=== PATIENT | male | born 1975 | race Hispanic/Latino ===

== ENCOUNTER 2019-03-11 07:19 | Day surgery (SDC) | payer BC ==
[2019-03-10 12:55] VITALS: BP 133/85
[2019-03-10 13:11] LABS: INR 1.07 (0.85-1.15); PARTIAL THROMBOPLASTIN TIME 26.1 SEC (26.3-35.5); PROTHROMBIN TIME 11.2 SEC (9.6-11.6)
[2019-03-10 13:38] LABS: CREATININE 1.2 mg/dL (0.5-1.5); POTASSIUM 3.9 mmol/L (3.5-5.1)
[2019-03-11] VITALS (12 sets, daily range): BP systolic 115–130; BP diastolic 59–77
[~2019-03-11] VITALS: Ht 198.1 cm; Wt 124.6 kg
[~2019-03-11 07:19] MED LIST: ATOR10TA69 PO; CEFAZOLIN SODIUM 1 GM VIAL IVP SCH
[2019-03-11] MEDS ORDERED: LACTATED RINGERS 1000ML 1,000 ML IV ONE (07:37)
[2019-03-11] MEDS ORDERED: PROPOFOL 10 MG/ML 20ML VIAL IV ONE (08:00)
[2019-03-11] MEDS ORDERED: LIDOCAINE PF 2% 5ML ABBOJECT ONE (08:00)
[2019-03-11] MEDS ORDERED: FENTANYL CITRATE PF 50 MCG/1 ML 5ML AMP IV ONE (08:00)
[2019-03-11] MEDS ORDERED: EPHEDRINE SULFATE 50 MG/ML AMPULE ONE (09:24)
[2019-03-11] MEDS ORDERED: BUPIVACAINE/PF 0.25% 30ML VIAL IJ ONE (09:28)
[2019-03-11] MEDS ORDERED: ONDANSETRON HCL 4 MG/2 ML VIAL ONE (10:00)
[2019-03-11] MEDS ORDERED: KETOROLAC TROMETHAMINE 30MG/ML ONE (10:00)
[2019-03-11] MEDS ORDERED: MEPERIDINE-PF 25 MG/ML SYG ONE ×2 (10:13→10:28)
== END 2019-03-11 11:38 | disposition home or self-care (01) ==
LOC: DAH 07:19
PROVIDERS: ATTEND Orthopaedic Surgery
DX: M23.221 Derangement of posterior horn of medial meniscus due to old tear or injury, right knee (principal); M22.41 Chondromalacia patellae, right knee; E78.00 Pure hypercholesterolemia, unspecified; M19.90 Unspecified osteoarthritis, unspecified site; Z98.890 Other specified postprocedural states; Z72.89 Other problems related to lifestyle; Z79.899 Other long term (current) drug therapy
CPT/HCPCS: 29881; 36415; 80048; 85610; 85730; A4215; A4221; A4222; A4223; A4606; A4649 ×3; A4663; A4930; A5120; A6223; A6260; J0690; J1885; J2001; J2175 ×2; J2405; J2704; J3010; J3490 ×2; J7120 ×2